=== PATIENT | female | born 1965 | race Asian ===

== ENCOUNTER 2016-09-27 10:57 | Outpatient (CLI) | payer OTHER | END 2016-09-27 19:14 | disposition home or self-care (01) | LOC: MAMMO 10:57 | DX: Z12.31 Encounter for screening mammogram for malignant neoplasm of breast (principal) | CPT/HCPCS: G0202-TC ==

== ENCOUNTER 2016-10-03 12:22 | Outpatient (CLI) | payer OTHER ==
[2016-10-03 13:21] LABS: PLATELET COUNT 268 K/uL (152-353)
[2016-10-03 14:00] LABS: POTASSIUM 4.3 mmol/L (3.6-5.2); SODIUM 139 mmol/L (136-145)
== END 2016-10-03 23:45 | disposition home or self-care (01) ==
LOC: LAB 12:22
PROVIDERS: Nurse Practitioner Family
DX: D51.0 Vitamin B12 deficiency anemia due to intrinsic factor deficiency (principal); K21.9 Gastro-esophageal reflux disease without esophagitis; I10 Essential (primary) hypertension; Z79.899 Other long term (current) drug therapy; Z51.81 Encounter for therapeutic drug level monitoring
CPT/HCPCS: 80053; 80061; 83036; 84439; 84443; 85027

== ENCOUNTER 2017-03-06 14:13 | Outpatient (CLI) | payer OTHER ==
[2017-03-06 14:41] LABS: PLATELET COUNT 279 K/uL (152-353)
[2017-03-06 15:03] LABS: POTASSIUM 4.4 mmol/L (3.6-5.2); SODIUM 139 mmol/L (136-145)
== END 2017-03-06 19:35 | disposition home or self-care (01) ==
LOC: LAB 14:13
PROVIDERS: Nurse Practitioner Family
DX: Z00.00 Encounter for general adult medical examination without abnormal findings (principal); K21.9 Gastro-esophageal reflux disease without esophagitis; R53.83 Other fatigue; E55.9 Vitamin D deficiency, unspecified; Z79.899 Other long term (current) drug therapy; Z51.81 Encounter for therapeutic drug level monitoring
CPT/HCPCS: 80053; 80061; 82306; 82607; 83036; 84436; 84443; 85027

== ENCOUNTER 2017-04-24 17:05 | Outpatient (CLI) | payer OTHER ==
[2017-04-24 18:54] LABS: PLATELET COUNT 261 K/uL (152-353)
[2017-04-24 19:01] LABS: POTASSIUM 4.5 mmol/L (3.6-5.2); SODIUM 141 mmol/L (136-145)
== END 2017-04-24 19:58 | disposition home or self-care (01) ==
LOC: LAB 17:05
PROVIDERS: Nurse Practitioner Family
DX: Z00.00 Encounter for general adult medical examination without abnormal findings (principal); Z79.899 Other long term (current) drug therapy; K21.9 Gastro-esophageal reflux disease without esophagitis; R53.83 Other fatigue; Z13.820 Encounter for screening for osteoporosis; R53.81 Other malaise
CPT/HCPCS: 80053; 80061; 82652; 83036; 84436; 84443; 85027

== ENCOUNTER 2020-09-06 10:05 | Emergency (ER) | payer OTHER ==
[~2020-09-06] VITALS: Ht 165.1 cm; Wt 114.8 kg
[2020-09-06 10:05] VITALS: TEMP 97
[2020-09-06] MEDS ORDERED: METF500T PO (10:19)
[2020-09-06] MEDS ORDERED: NEURONTIN 100M100 MG PO (10:19)
[2020-09-06] MEDS ORDERED: LISI10TA11 PO (10:29)
[2020-09-06] MEDS ORDERED: HYDR25TA60 PO (10:30)
[2020-09-06 12:00] VITALS: BP 129/78
== END 2020-09-06 12:57 | disposition home or self-care (01) ==
LOC: ED 10:14
DX: M25.552 Pain in left hip (principal); M47.896 Other spondylosis, lumbar region
CPT/HCPCS: 81000; 99283

== ENCOUNTER 2021-01-26 12:48 | Outpatient (CLI) | payer OTHER ==
[~2021-01-26 12:48] MED LIST: HYDR25TA60 PO; LISI10TA11 PO; METF500T PO; NEURONTIN 100M100 MG PO
== END 2021-01-26 22:28 | disposition home or self-care (01) ==
LOC: MAMMO 12:48
PROVIDERS: ATTEND Nurse Practitioner Family
DX: I10 Essential (primary) hypertension (principal); E11.9 Type 2 diabetes mellitus without complications; D64.9 Anemia, unspecified; K21.9 Gastro-esophageal reflux disease without esophagitis; M54.9 Dorsalgia, unspecified; E66.01 Morbid (severe) obesity due to excess calories; R89.9 Unspecified abnormal finding in specimens from other organs, systems and tissues; Z12.31 Encounter for screening mammogram for malignant neoplasm of breast; Z13.820 Encounter for screening for osteoporosis

== ENCOUNTER 2021-04-04 07:56 | Outpatient (CLI) | payer OTHER | END 2021-04-04 20:32 | disposition home or self-care (01) | LOC: MAMMO 07:56 | PROVIDERS: ATTEND Nurse Practitioner Family | DX: R92.8 Other abnormal and inconclusive findings on diagnostic imaging of breast (principal); R93.89 Abnormal findings on diagnostic imaging of other specified body structures ==

== ENCOUNTER 2022-09-08 15:14 | Emergency (ER) | payer OTHER ==
[~2022-09-08] VITALS: Ht 165.1 cm; Wt 114.8 kg
[2022-09-08 15:28] VITALS: BP 137/78; TEMP 97.9
== END 2022-09-08 16:24 | disposition home or self-care (01) ==
LOC: ED 15:14
DX: M54.2 Cervicalgia (principal); M25.512 Pain in left shoulder
CPT/HCPCS: 96372; 99282; J1885

== ENCOUNTER 2023-04-08 14:22 | Outpatient (CLI) | payer OTHER | END 2023-04-08 21:58 | disposition home or self-care (01) | LOC: MAMMO 14:22 | PROVIDERS: ATTEND Specialist | DX: Z12.31 Encounter for screening mammogram for malignant neoplasm of breast (principal) ==